=== PATIENT | male | born 1945 | race Caucasian/White ===

== ENCOUNTER 2023-07-13 07:38 | Observation (INO) ==
[~2023-07-13 07:38] MED LIST: Buffered Lidocaine 1% SYRIN 1 ml INTRADERM ONE; Famotidine IV 10 MG/ML 2 ml VIAL (20 mg) IV ONE; Lactated Ringers 1000 ml BAG 1,000 ML IV SCH
[2023-07-13] MEDS ORDERED: Chlorhexidine MOUTHWASH 0.12% 15 ML UDC ONE (07:49)
[2023-07-13] MEDS ORDERED: ceFAZolin 2 GM PREMIX 2 GM/50 ML BAG ONE (07:56)
[2023-07-13] MEDS ORDERED: Famotidine IV 10 MG/ML 2 ml VIAL (20 mg) ONE (07:56)
[2023-07-13 08:58] LABS: Rapid COVID-19 Molecular Undetected (Undetected)
[2023-07-13] MEDS ORDERED: Lidocaine 2% PF 5 ML VIAL ONE (09:09)
[2023-07-13] MEDS ORDERED: Midazolam 2 mg/2 ml VIAL 1 mg/ml 2 ml VIAL (2 mg) ONE (09:09)
[2023-07-13] MEDS ORDERED: fentaNYL 100 mcg/2 ml 50 MCG/ML VIAL ONE (09:09)
[2023-07-13] MEDS ORDERED: Lidocaine 1% w EPI 1:100,000 MDV 20 ML VIAL ONE (09:53)
[2023-07-13] MEDS ORDERED: Thrombin 5,000 UNITS 1 APPLIC KIT - topical use - TOPICAL ONE (09:53)
[2023-07-13] MEDS ORDERED: ceFAZolin VIAL VIAL ONE (09:54)
[2023-07-13] MEDS ORDERED: Gelfoam Sponge SIZE 100 SPONGE ONE (09:54)
[2023-07-13] MEDS ORDERED: Propofol 10 MG/ML 20 ML BTL ONE (10:23)
[2023-07-13] MEDS ORDERED: Rocuronium 50 mg VIAL 10 mg/ml 5 ml VIAL (50 mg) ONE ×2 (10:23→11:35)
[2023-07-13] MEDS ORDERED: Phenylephrine 40 mcg/mL 10mL (400mcg) SYRINGE ONE (10:58)
[2023-07-13] MEDS ORDERED: Phenylephrine IV 10 MG/ML 1 ml VIAL ONE (11:11)
[2023-07-13] MEDS ORDERED: Naloxone 0.4 mg VIAL 0.4 mg/ml 1 ml VIAL IV PRN (11:51)
[2023-07-13] MEDS ORDERED: fentaNYL 100 mcg/2 ml 50 MCG/ML VIAL IV PRN (11:51)
[2023-07-13] MEDS ORDERED: Ondansetron 4 mg VIAL 2 MG/ML 2 ml VIAL IV PRN ×2 (11:51→12:30)
[2023-07-13] MEDS ORDERED: Ondansetron 4 mg VIAL 2 MG/ML 2 ml VIAL ONE ×2 (12:10→14:02)
[2023-07-13] MEDS ORDERED: Dexamethasone IV 4 MG/ML VIAL 1 ml VIAL ONE (12:10)
[2023-07-13] MEDS ORDERED: Phenol 1.4% Throat Spray BTL MT PRN (12:30)
[2023-07-13] MEDS ORDERED: Calcium Carb (TUMS) 500 mg CHEW TAB PO PRN (12:30)
[2023-07-13] MEDS ORDERED: Magnesium Hydroxide LIQ 30 ML UDC PO PRN (12:30)
[2023-07-13] MEDS ORDERED: HYDROcodone/ACETAMIN 5/325 mg TAB PO PRN (12:30)
[2023-07-13] MEDS ORDERED: Senna TAB 8.6 mg TAB PO PRN (12:30)
[2023-07-13] MEDS ORDERED: Dextran 70/Hypromellose Tears Eye Drops 15 ml BTL (for Artificials Tears) BOTH EYES PRN (12:30)
[2023-07-13] MEDS ORDERED: Benzocaine/Menthol LOZ MT PRN (12:30)
[2023-07-13] MEDS ORDERED: Lactated Ringers 1000 ml BAG 1,000 ML IV SCH (13:00)
[2023-07-13] MEDS ORDERED: HYDROcodone/ACETAMIN 5/325 mg TAB ONE (13:28)
[2023-07-13] MEDS: HYDROcodone/ACETAMIN 5/325 mg TAB PO PRN ×2 (13:30→21:01)
[2023-07-14] MEDS: HYDROcodone/ACETAMIN 5/325 mg TAB PO PRN ×2 (00:50→09:37)
[2023-07-14 05:39] VITALS: BP 113/55
[2023-07-14] MEDS ORDERED: NF: Alfuzosin ER 10 mg TAB.ER (NF) 10 MG TAB.ER PO SCH (09:00)
== END 2023-07-14 11:30 | disposition home or self-care (01) ==
LOC: SSU 07:38 → OR 07:38
PROVIDERS: ADMIT Neurological Surgery; ATTEND Neurological Surgery